=== PATIENT | female | born 1940 | race Two or more races ===

== ENCOUNTER 2017-10-25 10:37 | Outpatient (CLI) | payer OTHER | END 2017-10-25 10:46 | disposition home or self-care (01) | LOC: RAD 501 10:37 | DX: M54.5 Low back pain (principal); M22.42 Chondromalacia patellae, left knee; M25.462 Effusion, left knee ==

== ENCOUNTER 2019-08-09 07:33 | Outpatient (CLI) | payer OTHER | END 2019-08-09 07:48 | disposition home or self-care (01) | LOC: NUCLEAR 07:33 | DX: I10 Essential (primary) hypertension (principal); R07.89 Other chest pain; R94.31 Abnormal electrocardiogram [ECG] [EKG] | CPT/HCPCS: 78452; 93017; A9500; J0153 ==

== ENCOUNTER 2020-09-25 11:40 | Outpatient (CLI) | payer OTHER | END 2020-09-25 15:30 | disposition home or self-care (01) | LOC: RAD 11:40 | PROVIDERS: ATTEND Physical Medicine & Rehabilitation | DX: M54.2 Cervicalgia (principal); M54.5 Low back pain ==

== ENCOUNTER 2021-02-12 08:00 | Outpatient (CLI) | payer OTHER | END 2021-02-12 08:30 | disposition home or self-care (01) | LOC: PPH VACUNA 08:00 | DX: Z23 Encounter for immunization (principal) ==